=== PATIENT | female | born 1960 | race Caucasian/White ===

== ENCOUNTER → 2018-10-18 | Outpatient (CLI) | payer OTHER ==
[~2018-10-18] MED LIST: ABAC300; CYCL10 PO; ESCI10; GABA300 PO; HYDACE5; HYDACE5 PO; IBUP400; LORA1; OXYC15ER; OXYC1TAB11 PO; PENVK500 PO; RXPENVK250 PO; TRAZ50; Voltaren100 GM; ZOLP12.5 PO
[2018-10-20 16:06] LABS: HPV 16 Negative (Negative); HPV 18 Negative (Negative); HPV OTHER HR TYPES Negative (Negative)
== END | disposition home or self-care (01) ==
LOC: LAB SHORT 18:01 → LAB 18:01
PROVIDERS: Nurse Practitioner Women's Health
DX: Z12.4 Encounter for screening for malignant neoplasm of cervix (principal); R87.89 Other abnormal findings in specimens from female genital organs; Z91.89 Other specified personal risk factors, not elsewhere classified
CPT/HCPCS: 87624; G0123

== ENCOUNTER → 2021-04-03 | Outpatient (CLI) | payer OTHER ==
[2021-04-10 11:11] LABS: HPV 16 Negative (Negative); HPV 18 Negative (Negative); HPV OTHER HR TYPES Negative (Negative)
== END | disposition home or self-care (01) ==
LOC: LAB 15:22 → LAB SHORT 15:22
PROVIDERS: Internal Medicine
DX: Z12.4 Encounter for screening for malignant neoplasm of cervix (principal)
CPT/HCPCS: 87624; G0145

== ENCOUNTER 2021-05-21 08:35 | Day surgery (SDC) | payer OTHER ==
[~2021-05-21] VITALS: Ht 167.6 cm; Wt 49.4 kg
[2021-05-21] MEDS ORDERED: EUTHYROX50 MCG PO (09:10)
--- NOTE | 2021-05-21 09:42 | NUR ---
05/21/21 0942 Stephany Caldwell PT USED LUIS TABS FOR PREP
== END 2021-05-21 11:06 | disposition home or self-care (01) ==
LOC: ORSCSDS 08:35
PROVIDERS: Surgery
PROC: 0DJD8ZZ Inspection of Lower Intestinal Tract, Via Natural or Artificial Opening Endoscopic (ICD-10-PCS; principal; 2021-05-21 09:45)
DX: Z12.11 Encounter for screening for malignant neoplasm of colon (principal); Z86.010 Personal history of colon polyps; Z80.0 Family history of malignant neoplasm of digestive organs; J44.9 Chronic obstructive pulmonary disease, unspecified; F41.9 Anxiety disorder, unspecified; M79.7 Fibromyalgia; F17.210 Nicotine dependence, cigarettes, uncomplicated; Z79.899 Other long term (current) drug therapy
CPT/HCPCS: J2704; J7120

== ENCOUNTER 2021-07-14 11:54 | Inpatient (IN) | payer OTHER ==
[~2021-07-14] VITALS: Ht 167.6 cm; Wt 49.0 kg
[~2021-07-14 11:54] MED LIST changes: -ESCI10; +ESCI10 PO; +LEVSOD75 PO; +OXYC10TA19 PO; -OXYC15ER; -TRAZ50; +TRAZ50 PO
[2021-07-14 12:27] LABS: BASOPHILS ABSOLUTE AUTO 0.01 K/mm3 (0.00-0.23); BASOPHILS PERCENT AUTO 0 % (0-2); EOSINOPHILS PERCENT AUTO 0 % (0-6); Hematocrit 41.5 % (33.0-51.0); Hemoglobin 14.6 g/dL (11.5-16.0); IMMATURE GRAN ABSOLUTE AUTO 0.04 K/mm3 (0.00-0.10); IMMATURE GRAN PERCENT AUTO 1 % (0-1); LYMPHOCYTES ABSOLUTE AUTO 0.77 K/mm3 (0.84-5.20); LYMPHOCYTES PERCENT AUTO 9 % (21-46); MONOCYTES ABSOLUTE AUTO 0.84 K/mm3 (0.16-1.47); MONOCYTES PERCENT AUTO 10 % (4-13); Mean Corpuscular HGB 31.3 pg (26.0-34.0); Mean Corpuscular HGB Conc 35.2 g/dL (31.5-36.5); Mean Corpuscular Volume 89 fL (80-100); Mean Platelet Volume 10.3 fL (9.1-12.4); NEUTROPHILS ABSOLUTE AUTO 6.63 K/mm3 (1.96-9.15); NEUTROPHILS PERCENT AUTO 80 % (41-73); Platelet Count 167 K/mm3 (150-400); RDW Coefficient Variation 12.4 % (11.7-14.2); RDW Standard Deviation 40.5 fL (35.1-46.3); Red Blood Cell Count 4.67 M/mm3 (3.80-5.20); White Blood Cell Count 8.29 K/mm3 (4.00-11.30)
[2021-07-14 12:43] LABS: Albumin/Globulin Ratio 0.8 (0.8-1.8); Bilirubin, Total 0.4 mg/dL (0.1-1.0); Bun/Creatinine Ratio 19.6 (12.0-20.0); Calcium, Blood 7.9 mg/dL (8.5-10.1); Creatinine, Blood 0.51 mg/dL (0.40-1.00); Globulin, Blood 3.6 g/dL (2.2-4.0); Potassium, Blood 3.6 mmol/L (3.5-5.5); Total Protein, Blood 6.6 g/dL (6.4-8.2)
[2021-07-14] MEDS ORDERED: FLUT1DIS2 INH (14:16)
[2021-07-14] MEDS ORDERED: ALBU90OI INH (14:16)
[2021-07-14] MEDS ORDERED: CEFP200 PO (14:16)
[2021-07-14] MEDS ORDERED: PRED20 PO (14:16)
[2021-07-14 14:17] LABS: Influenza B, PCR NEGATIVE (NEGATIVE); Resp Syncytial Virus, PCR NEGATIVE (NEGATIVE); SARS-Cov-2 (COVID-19) PCR, MMC NEGATIVE (NEGATIVE)
[2021-07-14 14:20] LABS: Influenza A, PCR POSITIVE (NEGATIVE)
--- NOTE | 2021-07-15 03:07 | NUR ---
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 O2 AT 2L/MIN PER NC. SATS IN THE 90'S. MED TELE SINUS RHYTHM IN THE 80'S. RECEIVED PAIN MEDS FOR BACK PAIN (VOICED HX BACK SURGERY). HAS BEEN RESTING QUIETLY WITH FEW INTERRUPTIONS. CALL LIGHT IN REACH.
--- NOTE | 2021-07-15 16:50 | NUR ---
NO ACUTE CHANGES. PT AOX4 AND COOPERATIVE OF CARE. PT STATES SHE IS FEELING MUCH BETTER. PT TREATED FOR BACK PAIN PER EMAR. PT CALLS APPROPRIATELY AND IS PLEASANT WITH CARE.PT IS INDEPENDENT IN ROOM AND CONTINUES TO BE ON 2L O2 AT THIS TIME. WILL CONTINUE TO MONITOR.
--- NOTE | 2021-07-16 03:37 | NUR ---
PT IS A&OX4, INDEPENDENT IN ROOM AND IS ABLE TO MAKE NEEDS KNOWN. REMAINS IN CONTACT PRECAUTIONS FOR INFLUENZA A, NO REPORTS OF SOB THIS SHIFT. PT ABLE TO SLEEP 6+ HOURS, O2 >90% ON 2L NC. VOICED CONCERNS ABOUT NOT HAVING HS LEXAPRO, STATES THAT THEY USUALLY TAKE 10MG WITH HS MEDICATION. WILL CONTINUE TO MONITOR THIS PATIENT AND GIVE HANDOFF REPORT TO ONCOMING NURSE.
[2021-07-16 04:45] LABS: Hematocrit 40.7 % (33.0-51.0); Mean Corpuscular HGB 31.3 pg (26.0-34.0); Mean Corpuscular HGB Conc 34.4 g/dL (31.5-36.5); Mean Corpuscular Volume 91 fL (80-100); Mean Platelet Volume 10.6 fL (9.1-12.4); Platelet Count 175 K/mm3 (150-400); RDW Coefficient Variation 12.7 % (11.7-14.2); RDW Standard Deviation 42.4 fL (35.1-46.3); Red Blood Cell Count 4.47 M/mm3 (3.80-5.20); White Blood Cell Count 13.75 K/mm3 (4.00-11.30)
[2021-07-16 05:09] LABS: Albumin, Blood 2.8 g/dL (3.4-5.0); Anion Gap 5 mmol/L (6-16); Blood Urea Nitrogen 10 mg/dL (8-24); Bun/Creatinine Ratio 19.3 (12.0-20.0); CO2, Blood 31 mmol/L (21-32); Calcium, Blood 8.8 mg/dL (8.5-10.1); Chloride, Blood 103 mmol/L (98-108); Creatinine, Blood 0.52 mg/dL (0.40-1.00); Glomerular Filtration Rate 105 (60-); Glucose, Blood 148 mg/dL (70-99); Phosphorus, Blood 2.8 mg/dL (2.5-4.9); Potassium, Blood 4.3 mmol/L (3.5-5.5); Sodium, Blood 139 mmol/L (136-145)
[2021-07-16] MEDS ORDERED: ACET325 PO (11:28)
[2021-07-16] MEDS ORDERED: ACYC400 PO (11:30)
[2021-07-16] MEDS ORDERED: Prednisone10 MG PO (12:01)
[2021-07-16] MEDS ORDERED: Q-Tussin100 MG/5 M PO (12:04)
[2021-07-16] MEDS ORDERED: IPRAT-ALBUT 0.5-3 ML INH (12:05)
[2021-07-16] MEDS ORDERED: OSEL75CA PO (12:05)
--- NOTE | 2021-07-16 16:36 | NUR ---
DISCHARGE PT DISCHARGED HOME BY WHEELCHAIR WITH 2L O2 AT 1630. ALL DISCHARGE INFO GONE OVER AND IV DC'D.
== END 2021-07-16 16:32 | disposition home or self-care (01) | DRG 193 ==
LOC: ER 11:54 → MEDS 16:51
PROVIDERS: Internal Medicine; Physician Assistant; ADMIT Internal Medicine
DX: J10.1 Influenza due to other identified influenza virus with other respiratory manifestations (principal); J96.01 Acute respiratory failure with hypoxia; J44.1 Chronic obstructive pulmonary disease with (acute) exacerbation; J44.0 Chronic obstructive pulmonary disease with (acute) lower respiratory infection; E87.1 Hypo-osmolality and hyponatremia; Z20.822 Contact with and (suspected) exposure to COVID-19; E86.0 Dehydration; E03.9 Hypothyroidism, unspecified; M79.7 Fibromyalgia; F41.9 Anxiety disorder, unspecified; G89.4 Chronic pain syndrome; Z88.1 Allergy status to other antibiotic agents; Z91.041 Radiographic dye allergy status; Z91.013 Allergy to seafood; Z91.09 Other allergy status, other than to drugs and biological substances; Z79.890 Hormone replacement therapy; Z79.899 Other long term (current) drug therapy; Z98.890 Other specified postprocedural states; Z87.891 Personal history of nicotine dependence
CPT/HCPCS: 0241U; 36415; 71045; 80053; 80069; 84145; 84484; 85025; 85027; 93005; 93010; 94640; 94644; 94664; 94760; 94761; 96374; 96375; 99285-25; A9270; J0696; J1650; J2405; J2920; J2930; J7030